=== PATIENT | female | born 1960 | race Caucasian/White ===

== ENCOUNTER → 2018-08-05 12:04 | Outpatient (CLI) | payer OTHER, MEDICAID, SELFPAY | DX: M54.5 Low back pain (principal); M25.561 Pain in right knee ==

== ENCOUNTER → 2018-08-05 12:25 | Outpatient (CLI) | payer OTHER, MEDICAID, SELFPAY ==
--- NOTE | 2018-08-05 | DI.RAD.S_ITS ---
PROCEDURE: XR LUMBAR SPINE 2-3V INDICATIONS: BACK PAIN TECHNIQUE: 3 views of the lumbar spine were acquired. COMPARISON: None. FINDINGS: Bones: 5 bya-bhp-ceokgyr vertebrae are present. There is a mildly levoscoliotic bony alignment. No vertebral body compression fractures. No suspicious bony lesions. Soft tissues: Overlying bowel gas pattern is normal. No suspicious soft tissue calcifications. IMPRESSION: Mild degenerative disc disease along the lumbosacral spine is present without subluxation. Moderate degenerative facet disease is present from L3-S1, to the degree that L4-5 and L5-S1 spinal and foraminal stenosis may be associated. Dictated by: Gabriel Katz M.D. on 08/05/2018 at 13:11 Approved by: Gabriel Katz M.D. on 08/05/2018 at 13:16
--- NOTE | 2018-08-05 | DI.RAD.S_ITS ---
PROCEDURE: XR KNEE RT 3V INDICATIONS: KNEE PAIN TECHNIQUE: 3 views of the knee were acquired. COMPARISON: None. FINDINGS: Bones: No fractures or dislocations but there is severe degenerative osteophytic change involving the knee joint with [id number] articulation at the medial compartment and slightly less degenerative changes at the lateral compartment and the patellofemoral joint. No suspicious bony lesions. Soft tissues: No joint effusion. No suspicious soft tissue calcifications. IMPRESSION: Very severe degenerative changes present with [id number] articulation at the medial compartment and near severe degenerative changes elsewhere. Dictated by: Gabriel Katz M.D. on 08/05/2018 at 13:16 Approved by: Gabriel Katz M.D. on 08/05/2018 at 13:18
== END ==
DX: M25.561 Pain in right knee (principal); M54.5 Low back pain; M51.37 Other intervertebral disc degeneration, lumbosacral region; M17.11 Unilateral primary osteoarthritis, right knee
CPT/HCPCS: 72100; 73562